=== PATIENT | male | born 1980 | race Caucasian/White ===

== ENCOUNTER → 2018-12-30 09:30 | Outpatient (CLI) | payer BC, SELFPAY ==
[2018-12-30 09:37] LABS: Mucous, Urine 0 SEEN /hpf (<or=2+); Red Blood Cells-Urine 0 SEEN /hpf (0-5); Squamous Epithelial Cells - UA 0 SEEN /hpf (0-5); White Blood Cells 0 SEEN /hpf (0-5)
[2018-12-30 12:33] LABS: Color, Urine Yellow (Yellow); Glucose, Dipstick Normal (Normal); Ketone-Dipstick Negative (Negative); Leukocyte Esterase-Dipstick Negative /ul (Negative); Nitrite-Dipstick Negative (Negative); Occult Blood-Urine Negative /ul (Negative); Protein-Dipstick Negative (Negative); Urine Bilirubin Dipstick Negative (Negative); Urine Clarity Clear (Clear); Urine Urobilinogen Normal (Normal)
[2018-12-30 12:37] LABS: Absolute Lymphocyte Count 1.28 X10^3/uL (0.83-4.51); Absolute Neutrophil Count 3.2 X10^3/uL (2.0-7.7); Basophil# 0.06 X10^3/uL; Basophil% 1.2 % (0-1); Eosinophils% 3.9 % (0-5); Hematocrit 47.6 % (40-54); Hemoglobin 15.6 g/dL (13.0-16.5); Lymphocyte # 1.28 X10^3/ul (4.0); Mean Corp Hgb Conc 32.8 g/dL (32-36); Mean Corpuscular Hgb 31.5 pg (27.0-32.0); Mean Corpuscular Volume 96.2 fL (80-94); Mean Platelet Vol. 11.1 fl (6.2-12.0); Monocyte% 7.8 % (0-10); NRBC Flagged by Analyzer 0 % (0-5); Neutrophil # 3.17 X10^3/uL (2.7-7.7); Neutrophil % 61.9 % (47-70); Platelet Count 177 K/mm3 (150-450); RBC Distribution Width CV 12.1 % (11.6-14.6); RBC Distribution Width SD 42.8 fl (35.1-43.9); Red Blood Count 4.95 M/mm3 (4.6-6.2); White Blood Count 5.1 K/mm3 (4.4-11.0)
[2018-12-30 12:41] LABS: Bacteria RARE /hpf (None Seen)
[2018-12-30 13:12] LABS: ALB/GLOB Ratio 1.3 RATIO (0.9-2.4); AST(SGOT) 13 U/L (15-37); Alanine Aminotransfer ALT/SGPT 27 U/L (16-61); Albumin, Serum 4.2 g/dL (3.2-5.0); Alkaline Phosphatase 95 U/L (45-117); Anion Gap 4 (5-15); BUN 10 mg/dL (7-18); BUN/Creat Ratio 10.2 RATIO (10-20); Calcium,Total 8.9 mg/dL (8.5-10.1); Chloride 108 mmol/L (98-107); Cholesterol 174 mg/dL (200); Creatinine, Serum 0.98 mg/dL (0.70-1.30); EST Glomerular Filtration Rate 92 mL/min (>60); Est Glom Filt Rate - Afr Amer 111 mL/min (>60); Globulin 3.2 g/dL (2.2-4.2); Glucose 80 mg/dL (74-106); High Density Lipoprotein 33 mg/dL; Potassium 4.7 mmol/L (3.5-5.1); Protein, Total 7.4 g/dL (6.4-8.2); Sodium Level 140 mmol/L (136-145); Thyroid Stim Hormone (TSH) 1.45 uIU/mL (0.358-3.74); Triglycerides 127 mg/dL; Very Low Density Lipoprotein 25 mg/dL (5-40)
== END ==
PROVIDERS: Family Provider Family Medicine; PCP Family Medicine; Referring Provider Family Medicine; Visit Provider Family Medicine
DX: Z13.1 Encounter for screening for diabetes mellitus (principal); Z13.220 Encounter for screening for lipoid disorders
CPT/HCPCS: 36415; 80053; 80061; 81001; 84443; 85025

== ENCOUNTER → 2021-03-02 | Outpatient (CLI) | payer BC, SELFPAY | END | disposition home or self-care (01) | PROVIDERS: PCP Family Medicine; Visit Provider Family Medicine | DX: B34.9 Viral infection, unspecified (principal) | CPT/HCPCS: 87633; 87635; U0005; U0003 ==

== ENCOUNTER → 2022-03-28 | Outpatient (CLI) | payer BC, SELFPAY ==
[2022-03-28 17:57] LABS: Absolute Lymphocyte Count 1.47 X10^3/uL (0.83-4.51); Absolute Neutrophil Count 3.7 X10^3/uL (2.0-7.7); Basophil# 0.05 X10^3/uL; Basophil% 0.8 % (0-1); Eosinophil# 0.24 X10^3/uL; Eosinophils% 4.1 % (0-5); Hematocrit 45.2 % (40-54); Hemoglobin 15.4 g/dL (13.0-16.5); Lymphocyte # 1.47 X10^3/ul (0.83-4.51); Lymphocyte % 24.8 % (19-41); Mean Corp Hgb Conc 34.1 g/dL (32-36); Mean Corpuscular Volume 93.8 fL (80-94); Mean Platelet Vol. 10.7 fl (6.2-12.0); Monocyte# 0.42 X10^3/uL; Monocyte% 7.1 % (0-10); NRBC Flagged by Analyzer 0 % (0-5); Neutrophil # 3.73 X10^3/uL (2.7-7.7); Platelet Count 212 K/mm3 (150-450); RBC Distribution Width CV 12.5 % (11.6-14.6); Red Blood Count 4.82 M/mm3 (4.6-6.2); White Blood Count 5.9 K/mm3 (4.4-11.0)
[2022-03-28 18:27] LABS: ALB/GLOB Ratio 1.3 RATIO (0.9-2.4); AST(SGOT) 17 U/L (15-37); Alanine Aminotransfer ALT/SGPT 30 U/L (16-61); Albumin, Serum 3.9 g/dL (3.2-5.0); Alkaline Phosphatase 84 U/L (45-117); Anion Gap 5 (5-15); BUN 16 mg/dL (7-18); BUN/Creat Ratio 15.2 RATIO (10-20); Calcium,Total 8.6 mg/dL (8.5-10.1); Chloride 107 mmol/L (98-107); Cholesterol 215 mg/dL (200); Creatinine, Serum 1.05 mg/dL (0.70-1.30); EST Glomerular Filtration Rate 83 mL/min (>60); Est Glom Filt Rate - Afr Amer 100 mL/min (>60); Globulin 2.9 g/dL (2.2-4.2); Glucose 86 mg/dL (74-106); High Density Lipoprotein 34 mg/dL; Protein, Total 6.8 g/dL (6.4-8.2); Sodium Level 140 mmol/L (136-145); Thyroid Stim Hormone (TSH) 1.45 uIU/mL (0.358-3.74); Triglycerides 184 mg/dL; Very Low Density Lipoprotein 37 mg/dL (5-40)
== END | disposition home or self-care (01) ==
LOC: MFPLAB 16:09
PROVIDERS: PCP Family Medicine; Referring Provider Family Medicine; Visit Provider Family Medicine
DX: Z00.00 Encounter for general adult medical examination without abnormal findings (principal)
CPT/HCPCS: 36415; 80053; 80061; 84443; 85025

== ENCOUNTER → 2022-09-13 | Outpatient (CLI) | payer BC, SELFPAY ==
--- NOTE | 2022-09-13 08:30 | VAS_PTH ---
PATIENT: RUDY NARVAEZ LOC: [facility] U#:[id number] AGE/SX: 42/M ROOM: RE09/13/[address]: Dr. Víctor Huntley MD : 1980 BED: DIS: 09/13/2022 SPEC #: [id number] RECD: 09/13/22 09:43 STATUS: BEAR DIYA #: [id number] ANDRES: 09/13/22 08:[address]: Víctor Huntley DEPT: SURGICAL PATHOLOGY RECD BY: Aria He ENTERED: 09/13/22 11:22 SP TYPE: VAS OTHR DR: Dr. Epi Negron MD Tissues: A - Vas deferens, NOS B - Vas deferens, NOS Procedures: Surgery Specimen Level II HEADER OPERATION: Bilateral vasectomy PRE-OP DIAGNOSIS: Sterilization TISSUE SUBMITTED: A ? Left vas deferens, B ? Right vas deferens MICROSCOPIC DIAGNOSIS A. Left vas deferens, partial vasectomy: Completely transected segment of vas deferens, no pathologic diagnosis. B. Right vas deferens, partial vasectomy: Completely transected segment of vas deferens, no pathologic diagnosis. SCOUT:milton 09/14/2022 MICROSCOPIC DESCRIPTION Slides are reviewed. GROSS DESCRIPTION A - Received is one container designated left vas deferens. The specimen consists of a tubular segment of dockery soft tissue measuring 0.5 cm in length and 0.3 cm in diameter. The specimen is sectioned and submitted entirely in one cassette. B - Received is one container designated right vas deferens. The specimen consists of a tubular segment of dockery soft tissue measuring 0.6 cm in length and 0.2 cm in diameter. The specimen is sectioned and submitted entirely in one cassette. / SCOUT:milton 09/13/2022 TC:4 [facility]: [id number] [id number]
== END | disposition home or self-care (01) ==
LOC: LABSPEC 09:50
PROVIDERS: PCP Family Medicine; Referring Provider Surgery; Visit Provider Surgery
DX: Z98.52 Vasectomy status (principal)
CPT/HCPCS: 88302

== ENCOUNTER → 2023-03-07 | Outpatient (CLI) | payer BC, SELFPAY ==
[2023-03-07 11:49] LABS: Semen Analysis Post Vas PATH REVIEW ONLY
[2023-03-08 13:03] LABS: Pathologist Review Reviewed
== END | disposition home or self-care (01) ==
PROVIDERS: Referring Provider Surgery; Visit Provider Surgery
DX: Z30.2 Encounter for sterilization (principal)
CPT/HCPCS: 89321

== ENCOUNTER → 2023-03-14 | Outpatient (CLI) | payer BC, SELFPAY | END | disposition home or self-care (01) | PROVIDERS: Visit Provider Surgery | DX: Z00.00 Encounter for general adult medical examination without abnormal findings (principal) | CPT/HCPCS: 89321 ==

== ENCOUNTER → 2023-03-20 | Outpatient (CLI) | payer BC, SELFPAY ==
[2023-03-20 17:55] LABS: Semen Analysis Post Vas PATH REVIEW ONLY
[2023-03-21 14:25] LABS: Pathologist Review Reviewed
== END | disposition home or self-care (01) ==
LOC: LABSPEC 14:18
PROVIDERS: Surgery; Visit Provider Surgery
DX: Z30.2 Encounter for sterilization (principal)
CPT/HCPCS: 89321

== ENCOUNTER → 2023-03-26 | Outpatient (CLI) | payer BC, SELFPAY ==
[2023-03-26 15:21] LABS: Semen Analysis Post Vas PATH REVIEW ONLY
[2023-03-27 13:26] LABS: Pathologist Review Reviewed
== END | disposition home or self-care (01) ==
LOC: LABSPEC 11:22
PROVIDERS: Referring Provider Surgery; Visit Provider Surgery
DX: Z30.2 Encounter for sterilization (principal)
CPT/HCPCS: 89321

== ENCOUNTER → 2023-03-30 | Outpatient (CLI) | payer BC, SELFPAY ==
--- OUTSIDE RECORDS SUMMARY | 2023-03-30 11:42 | XMS RPT_ITS | CCD ---
Author Name Unknown Address [address] [place] [address] Organization [facility] Care Team Providers Care Strap Buckler Machine Name Role Phone Unavailable Primary Care Provider ROXY Vu Attending Unavailable Allergies Allergy Classification Reported Allergen(s) Allergy Type Date of Onset Reaction(s) Facility (2 sources) Penicillins; Translations: [PENICILLINS] Drug Allergy 06-19-2022 Rash [facility] Problems Problem Classification Problem Date Documented Da te Episodic/Chronic Contraceptive and procreative management (2 sources) Patient encounter status; Translations: [Encounter for other general counseling and advice on contraception] Onset: 06-19-2022 Episodic Results Test Name Value Interpretation Reference Range Facil ity Vital Signs Date Time Vital Sign Value Performing Clinician Faci lity 06-19-2022 08:28-0400 Body height 185.4 cm Roxy Kelsey PA-C Work Phone: [facility] 06-19-2022 08:28-0400 Body temperature 98.01 [degF] Roxy Kelsey PA-C Work Phone: [facility] 06-19-2022 08:28-0400 Body weight 98.43 kg Roxy Kelsey PA-C Work Phone: [facility] 06-19-2022 08:28-0400 Diastolic blood pressure 84 mm[Hg] Roxy Kelsey PA-C Work Phone: [facility] 06-19-2022 08:28-0400 Heart rate 100 /min Roxy Kelsey PA-C Work Phone: [facility] 06-19-2022 08:28-0400 Respiratory rate 14 /min Roxy Kelsey PA-C Work Phone: [facility] 06-19-2022 08:28-0400 SaO2% (BldA) [Mass fraction] 99 % Roxy Kelsey PA-C Work Phone: [facility] 06-19-2022 08:28-0400 Systolic blood pressure 122 mm[Hg] Roxy Kelsey PA-C Work Phone: [facility] Encounters Encounter Date Encounter Type Care Provider Facility Start: 06-19-2022 End: 06-20-2022 ambulatory ROXY KELSEY Facility:[facility] Start: 06-19-2022 End: 06-19-2022 Patient encounter procedure Roxy Kelsey PA-C Work Phone: Urology Plan of Treatment Date Care Activity Detail Author Start: 04-01-2022 DEPRESSION ASSESSMENT DEPRESSION ASS ESSMENT [facility] Start: 05-07-2021 COVID-19 VACCINE (4 - Booster for Moderna series) COVID-19 VACCINE (4 - Booster for Moderna series) [facility] Start: 2016 LIPID SCREEN LIPID SCREEN [facility] Start: 2000 Urine microalbumin profile DTAP,TDAP,TD (1 - Tdap) [facility] Start: 1999 HEPATITIS C SCREENING HEPATITIS C SC DEONNA [facility] Start: 1999 HIV SCREENING HIV SCREENING [facility] Start: 1981 HEPATITIS B (1 of 3 - 3-dose series) HEPATITIS B (1 of 3 - 3-dose series) [facility] Vasectomy uni/bi spx w/postop semen exams VASECTOMY Procedures Routine Vasectomy evaluation Ordered: 06/19/2022 [facility] Work Phone: Payers Date Payer Category Payer Unknown [employer] DAVE PPO [id number] 2010-Present [phone] [facility] [id number] [place] [address] PPO [id number] 2010 Unknown [id number] Social History Date Type Detail Facility [facility]: [facility] Start: 06-19-2022 Tobacco use and exposure Smoke less tobacco non-user [facility] Start: 06-19-2022 Alcohol intake Ex-drinker (finding) [facility] Start: 1980 Sex Assigned At Not on file C [facility] Progress note 06-19-2022 Note Date & Type Note Facility 06-19-2022 Note HNO ID: [id number] Author: Roxy Kelsey PA-C Service: ? Author Type: Physician Geomagnetist Type: Progress Notes Filed: 06/19/2022 8:55 AM Note Text: Trevor Howe June 19, 2022 Referred by: Self CC: Desires permanent sterilization HPI: 42 year old male states he desire permanent surgical sterilization. Reports fathering 4 children and expressly states he does not desire to father children in the future. Genitourinary history: Hx undescended testis: No Hx stone disease: No Hx UTI/prostatitis/epididimitis/STI: No Sexual frequency/libido: No Urinary sx: No Hematuria: No No family history on file. No past medical history on file. PAST SURGICAL HISTORY Procedure Laterality Date PAST SURGICAL HISTORY OF Tonsilectomy and adoidectomy at age 4-5 years old No current outpatient medications on file. No current facility-administered medications for this visit. Allergies: Penicillins Occupation/exposures: None ROS: ENMT: No changes in hearing or vision, no nose bleeds or other nasal problems SKIN: Negative for lesions, rash, and itching. ENDOCRINE: Negative for cold or heat intolerance, polyuria, polydipsia and goiter. RESPIRATORY: Negative for cough, wheezing and shortness of breath CARDIOVASCULAR: Negative for chest pain, leg swelling and palpitations GI: Negative for abdominal discomfort, blood in stools or black stools : Negative for dysuria, frequency and incontinence MUSCULOSKELETAL: Negative for joint pain or swelling, back pain, and muscle pain. PSYCH: Negative for sleep disturbance, mood disorder and recent psychosocial stressors. NEURO: Negative All other systems reviewed and are negative. Physical Exam: There were no vitals taken for this visit. General: Well appearing, alert, in no acute distress, well-hydrated, well nourished. ENMT: Negative Neuro: Awake, alert and oriented x 3 Inguinal: No lympnadenopathy and No hernia Gastrointestinal:Non-tender, Soft : Testes: descended, without tenderness, and no masses bilaterally. L Normal ccs - R Normal ccs Phallus; normal, circumcised -, no lesions, Meatus: Orthotopic, patent, no discharge and Scrotum: no lesions, normal rugae Varicocele: No Epididymides: L Normal R Normal Vas deferens: Bilaterally Normal Musculoskeletal: normal, supple and thyroid normal size, non-tender, without nodularity Assessment: 42 year old male desires vasectomy. The patient attests that he watched and understood the AUA Vasectomy video and read and understood the No-Scalpel Vasectomy pamphlet. He was instructed to stop all NSAIDs, aspirin and other blood thinners 5 days prior to the vasectomy. He was instructed to shave entire front of scrotum to the base of the penis the morning of the vasectomy. Postprocedure care, expectations, and limitations were discussed. He voiced understanding of these instructions and stated his questions were answered. Plan: 1) Proceed to vasectomy scheduling I personally counseled this patient about the following and he voiced understanding: a) Vasectomy is a permanent and irreversible form of sterilization b) 1:1,000 rate of recanalization which can results in the return of sperm into the ejaculate after vasectomy c) Patient must use alternative form of control until he is notified that his postprocedure semen analysis contained no sperm. Consultation requested by Self for an opinion regarding vasectomy and my final recommendations will be communicated back to the requesting physician by way of shared Medical record or letter via [place] mail. Visit duration 30 minutes with approximately 50% of time in counseling ARMAND Yang, [place], [facility] History of Present illness Narrative 06-19-2022 Roxy Kelsey PA-C - 06/19/2022 8:21 AM EDT Note Date & Type Note Facility 06-19-2022 History of Presen t illness Narrative Trevor Howe June 19, 2022 Referred by: Self CC: Desires permanent sterilization HPI: 42 year old male states he desire permanent surgical sterilization. Reports fathering 4 children and expressly states he does not desire to father children in the future. Genitourinary history: Hx undescended testis: No Hx stone disease: No Hx UTI/prostatitis/epididimitis/STI: No Sexual frequency/libido: No Urinary sx: No Hematuria: No No family history on file. No past medical history on file. PAST SURGICAL HISTORY Procedure Laterality Date PAST SURGICAL HISTORY OF Tonsilectomy and adoidectomy at age 4-5 years old No current outpatient medications on file. No current facility-administered medications for this visit. Allergies: Penicillins Occupation/exposures: None ROS: ENMT: No changes in hearing or vision, no nose bleeds or other nasal problems SKIN: Negative for lesions, rash, and itching. ENDOCRINE: Negative for cold or heat intolerance, polyuria, polydipsia and goiter. RESPIRATORY: Negative for cough, wheezing and shortness of breath CARDIOVASCULAR: Negative for chest pain, leg swelling and palpitations GI: Negative for abdominal discomfort, blood in stools or black stools : Negative for dysuria, frequency and incontinence MUSCULOSKELETAL: Negative for joint pain or swelling, back pain, and muscle pain. PSYCH: Negative for sleep disturbance, mood disorder and recent psychosocial stressors. NEURO: Negative All other systems reviewed and are negative. Physical Exam: There were no vitals taken for this visit. General: Well appearing, alert, in no acute distress, well-hydrated, well nourished. ENMT: Negative Neuro: Awake, alert and oriented x 3 Inguinal: No lympnadenopathy and No hernia Gastrointestinal:Non-tender, Soft : Testes: descended, without tenderness, and no masses bilaterally. L Normal ccs - R Normal ccs Phallus; normal, circumcised -, no lesions, Meatus: Orthotopic, patent, no discharge and Scrotum: no lesions, normal rugae Varicocele: No Epididymides: L Normal R Normal Vas deferens: Bilaterally Normal Musculoskeletal: normal, supple and thyroid normal size, non-tender, without nodularity Assessment: 42 year old male desires vasectomy. The patient attests that he watched and understood the AUA Vasectomy video and read and understood the No-Scalpel Vasectomy pamphlet. He was instructed to stop all NSAIDs, aspirin and other blood thinners 5 days prior to the vasectomy. He was instructed to shave entire front of scrotum to the base of the penis the morning of the vasectomy. Postprocedure care, expectations, and limitations were discussed. He voiced understanding of these instructions and stated his questions were answered. Plan: 1) Proceed to vasectomy scheduling I personally counseled this patient about the following and he voiced understanding: a) Vasectomy is a permanent and irreversible form of sterilization b) 1:1,000 rate of recanalization which can results in the return of sperm into the ejaculate after vasectomy c) Patient must use alternative form of control until he is notified that his postprocedure semen analysis contained no sperm. Consultation requested by Self for an opinion regarding vasectomy and my final recommendations will be communicated back to the requesting physician by way of shared Medical record or letter via [place] mail. Visit duration 30 minutes with approximately 50% of time in counseling ARMAND Yang MT, PA-C documented in this encounter [facility] Instructions 06-19-2022 Patient Instructions Note Date & Type Note Facility 06-19-2022 Instructions Roxy Kelsey PA-C - 06/19/2022 8:21 AM EDT Images from the original note were not included. Vasectomy Providers and Locations Dr. Dc: Locations: [facility] Can use local, nitrous, and general anesthesia documented in this encounter [facility] Evaluation note Note Date & Type Note Facility documented in this encounter [facility] Summary Purpose Family History No Family History Records Found Advance Directives No Advanced Directives Records Found Additional Source Comments Source Comments (unrecognize d section and content) In the event this informatio n is protected by the Federal Confidentiality of Alcohol and Drug Abuse Patient Records regulations: The Federal rules restrict any use of the information to criminally investigate or prosecute any alcohol or drug abuse patient.[facility] Reason for Visit (unrecogniz ed section and content) (unrecognized sect ion and content) No Status Records Found INFORMATION SOURCE (unrecogn ized section and content) FOR RECORDS PERTAINING TO PATIENTS WHO ARE OR HAVE BEEN ENROLLED IN A CHEMICAL DEPENDENCY/SUBSTANCEABUSE PROGRAM, SOME INFORMATION MAY BE OMITTED. This clinical summary was aggregated from multiple sources. Caution should be exercised in using it in the provision of clinical care. This summary normalizes information from multiple sources, and as a consequence, information in this document may materially change the coding, format and clinical context of patient data. In addition, data may be omitted in some cases. CLINICAL DECISIONS SHOULD BE BASED ON THE PRIMARY CLINICAL RECORDS. [employer] [facility]. provides no warranty or guarantee of the accuracy or completeness of information in this document.
[2023-03-30 16:01] LABS: Semen Analysis Post Vas PATH REVIEW ONLY
[2023-04-03 10:17] LABS: Pathologist Review Reviewed
== END | disposition home or self-care (01) ==
LOC: LABSPEC 11:38
PROVIDERS: PCP Surgery; Visit Provider Surgery
DX: Z30.2 Encounter for sterilization (principal)
CPT/HCPCS: 89321

== ENCOUNTER → 2024-01-09 | Outpatient (CLI) | payer BC, SELFPAY ==
[2024-01-09 16:55] LABS: Mucous, Urine 0 SEEN /hpf (<or=2+); Red Blood Cells-Urine 0 SEEN /hpf (0-5); Squamous Epithelial Cells - UA 0 SEEN /hpf (0-5); White Blood Cells 0 SEEN /hpf (0-5)
[2024-01-09 18:07] LABS: Absolute Lymphocyte Count 1.84 X10^3/uL (0.83-4.51); Absolute Neutrophil Count 3.3 X10^3/uL (2.0-7.7); Basophil# 0.07 X10^3/uL; Basophil% 1.2 % (0-1); Eosinophil# 0.31 X10^3/uL; Eosinophils% 5.1 % (0-5); Hematocrit 46.2 % (40-54); Hemoglobin 15.2 g/dL (13.0-16.5); Lymphocyte # 1.84 X10^3/ul (0.83-4.51); Lymphocyte % 30.3 % (19-41); Mean Corp Hgb Conc 32.9 g/dL (32-36); Mean Corpuscular Volume 94.3 fL (80-94); Mean Platelet Vol. 10.5 fl (6.2-12.0); Monocyte# 0.57 X10^3/uL; Monocyte% 9.4 % (0-10); NRBC Flagged by Analyzer 0 % (0-5); Neutrophil # 3.26 X10^3/uL (2.7-7.7); Neutrophil % 53.7 % (47-70); Platelet Count 201 K/mm3 (150-450); RBC Distribution Width CV 12.3 % (11.6-14.6); RBC Distribution Width SD 42.7 fl (35.1-43.9); White Blood Count 6.1 K/mm3 (4.4-11.0)
[2024-01-09 18:07] LABS: Color, Urine Yellow (Yellow); Glucose, Dipstick Normal (Normal); Ketone-Dipstick Negative (Negative); Leukocyte Esterase-Dipstick Negative /ul (Negative); Nitrite-Dipstick Negative (Negative); Occult Blood-Urine Negative /ul (Negative); Protein-Dipstick Negative (Negative); Specific Gravity, Urine 1.015 (1.002-1.030); Urine Bilirubin Dipstick Negative (Negative); Urine Clarity Clear (Clear); Urine Urobilinogen 1 mg/dl (Normal); Urine pH 6.5 (5.0 - 8.0)
[2024-01-09 18:17] LABS: Bacteria RARE /hpf (None Seen)
[2024-01-09 18:25] LABS: ALB/GLOB Ratio 1.1 RATIO (0.9-2.4); AST(SGOT) 19 U/L (15-37); Alanine Aminotransfer ALT/SGPT 35 U/L (16-61); Albumin, Serum 3.9 g/dL (3.2-5.0); Alkaline Phosphatase 91 U/L (45-117); Anion Gap 4 (5-15); BUN 14 mg/dL (7-18); BUN/Creat Ratio 13.1 RATIO (10-20); Calcium,Total 9.4 mg/dL (8.5-10.1); Chloride 106 mmol/L (98-107); Cholesterol 213 mg/dL (200); Creatinine, Serum 1.07 mg/dL (0.70-1.30); EST Glomerular Filtration Rate 80 mL/min (>60); Est Glom Filt Rate - Afr Amer 97 mL/min (>60); Globulin 3.5 g/dL (2.2-4.2); Glucose 89 mg/dL (74-106); High Density Lipoprotein 35 mg/dL; Protein, Total 7.4 g/dL (6.4-8.2); Sodium Level 139 mmol/L (136-145); Triglycerides 171 mg/dL; Very Low Density Lipoprotein 34 mg/dL (5-40)
== END | disposition home or self-care (01) ==
LOC: MTLAB 16:50
PROVIDERS: PCP Family Medicine; Referring Provider Family Medicine; Visit Provider Family Medicine
DX: Z00.00 Encounter for general adult medical examination without abnormal findings (principal)
CPT/HCPCS: 80053; 80061; 81001; 85025

== ENCOUNTER → 2025-01-13 | Outpatient (CLI) | payer BC, SELFPAY ==
[2025-01-13 18:15] LABS: Hematocrit 46.5 % (40-54); Hemoglobin 15.5 g/dL (13.0-16.5); Immature Granulocytes Count 0.030 X10^3/uL (0.0-0.0); Mean Corp Hgb Conc 33.3 g/dL (32-36); Mean Corpuscular Volume 94.3 fL (80-94); Mean Platelet Vol. 11.2 fl (6.2-12.0); NRBC Flagged by Analyzer 0 % (0-5); Platelet Count 211 K/mm3 (150-450); RBC Distribution Width CV 11.9 % (11.6-14.6); RBC Distribution Width SD 41.6 fl (35.1-43.9); Red Blood Count 4.93 M/mm3 (4.6-6.2); White Blood Count 6.8 K/mm3 (4.4-11.0)
[2025-01-13 18:36] LABS: Cholesterol 203 mg/dL (<=200); Low Density Lipoprotein Calc. 125 mg/dL; Triglycerides 235 mg/dL; Very Low Density Lipoprotein 47 mg/dL (5-40); cholesterol:hdl ratio screen 6.57
[2025-01-13 19:04] LABS: AST(SGOT) 25 U/L (<=37); Alanine Aminotransfer ALT/SGPT 27 U/L (<=46); Albumin, Serum 4.5 g/dL (3.5-5.0); Alkaline Phosphatase 90 U/L (40-129); Anion Gap 11 (5-15); BUN 17 mg/dL (4-19); BUN/Creat Ratio 14.1 RATIO (10-20); Calcium,Total 9.5 mg/dL (7.6-11.0); Carbon Dioxide 25.3 mmol/L (21.0-32.0); Chloride 104 mmol/L (98-108); Globulin 2.7 g/dL (2.2-4.2); Glucose 89 mg/dL (70-99); Potassium 3.9 mmol/L (3.3-5.1)
== END | disposition home or self-care (01) ==
LOC: MTLAB 16:36
PROVIDERS: PCP Family Medicine; Referring Provider Family Medicine; Visit Provider Family Medicine
DX: Z00.00 Encounter for general adult medical examination without abnormal findings (principal)
CPT/HCPCS: 36415; 80053; 80061; 85025